=== PATIENT | female | born 2000 | race Caucasian/White ===

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

== ENCOUNTER → 2022-04-06 | Outpatient (CLI) | payer MEDICAID, SELFPAY | END | disposition home or self-care (01) | LOC: WOBLAB 15:14 | PROVIDERS: Visit Provider Obstetrics & Gynecology | DX: Z36.85 Encounter for antenatal screening for Streptococcus B (principal) | CPT/HCPCS: 36415; 86850; 87081 ==

== ENCOUNTER 2022-04-30 15:25 | Inpatient (IN) | payer MEDICAID, SELFPAY ==
[2022-04-30] VITALS (11 sets, daily range): BP systolic 123–131; BP diastolic 69–91; PULSE 94–125; TEMP 36.4–37.5; O2SAT 97–100; BMI 38.7
--- NOTE | 2022-04-30 08:05 | OB.TRI.NOTE ---
HPI - General General Date of Admission: 04/30/22 HPI Narrative DAIN CORTES, is a 21 F who presents with contractions PFSH PFSH Home Medications insulin detemir U-100 100 unit/mL subcutaneous solution (Levemir U-100 Insulin) 15 unit subcut BID Check with primary doctor 04/30/22 [History Last Taken Unknown] Allergy/AdvReac Type Severity Reaction Status Date / Time No Known Allergies Allergy Verified 04/30/22 01:40 Surgical History (Updated 08/31/21 @ 14:50 by Zach Nayak) Hx of tonsillectomy Social History Smoking Status: Never smoker NST FHR Rate Baby A Baseline: 145 Variability:: Moderate Accelerations:: 15 x 15 Decelerations:: None NST Reactive:: Yes Uterine Activity:: quiet Assessment & Plan (1) : PLAN: Patient arrived with contractions. Cervical exam unchanged. No signs of labor. Okay to discharge home and follow-up at scheduled appointments
[2022-04-30] MEDS: miSOPROStol 25 MCG TABLET VAGINAL (16:23)
[2022-04-30 16:39] LABS: Absolute Lymphocyte Count 1.79 X10^3/uL (0.83-4.51); Absolute Neutrophil Count 6.7 X10^3/uL (2.0-7.7); Basophil# 0.03 X10^3/uL; Basophil% 0.3 % (0-1); Eosinophil# 0.11 X10^3/uL; Eosinophils% 1.2 % (0-5); Hematocrit 32.7 % (37-47); Hemoglobin 10.8 g/dL (12.0-15.0); Lymphocyte # 1.79 X10^3/ul (0.83-4.51); Lymphocyte % 18.8 % (19-41); Mean Corpuscular Hgb 27.6 pg (27.0-32.0); Mean Corpuscular Volume 83.4 fL (81-99); Mean Platelet Vol. 11.6 fl (6.2-12.0); Monocyte# 0.64 X10^3/uL; Monocyte% 6.7 % (0-10); NRBC Flagged by Analyzer 0 % (0-5); Neutrophil # 6.74 X10^3/uL (2.7-7.7); Neutrophil % 70.8 % (47-70); Platelet Count 259 K/mm3 (150-450); RBC Distribution Width SD 39.1 fl (35.1-43.9); Red Blood Count 3.92 M/mm3 (4.2-5.4); White Blood Count 9.5 K/mm3 (4.4-11.0)
[2022-04-30 17:10] LABS: Bedside Glucose 79 mg/dL (74-106)
--- NOTE | 2022-04-30 17:44 | PCM.HP.BLA ---
History and Physical Date of Admission: 04/30/22 Chief complaint: Poorly controlled gestational diabetic induction of labor History present illness: 21-year-old G1, P0 at 38 weeks and 3 days with KEERTHI 05/11/2022 arrives for induction of labor with poorly controlled GDM A. Denies headache, visual changes, chest pain, shortness of breath, nausea vomit, right upper quadrant pain. He states good movement. is complicated by GDM A2 Obstetric history: G1: Current Past medical history: GDM A2 Medications: Levemir Allergies: No known drug allergies Past surgical history: Tonsils and adenoids Social history: Denies history of smoking, alcohol use, drug use Family history: Denies history DVT or PE Review of systems: Besides above pertinent positives a full review of systems was performed and found to be negative Physical exam: Vitals: Blood pressure 129/83 pulse 98 General: Normal-appearing no acute distress HEENT: Normocephalic atraumatic no cervical of adenopathy Cardiac/respiratory: No accessory muscles, nonlabored breathing Abdomen: Soft, nontender, gravid Extremities: No peripheral edema normal peripheral pulses Psych: Normal affect, demeanor nonpressured speech Labs: White blood cell count 9.5 hemoglobin 10.8 hematocrit 32.7% platelets 259. Blood type A- antibody negative Assessment plan: 21-year-old G1, P0 at 30 weeks and 3 days for induction of labor with poorly controlled GDM A Admit labor and delivery CEFM Cytotec induction GBS negative GDM A2: We will continue to monitor blood sugars Routine orders Anesthesia to see
[2022-04-30 17:45] LABS: Bedside Glucose 74 mg/dL (74-106)
--- NOTE | 2022-04-30 18:25 | NURSING ---
clinical study manager stated that an adult must be in room if father of who is 17 years old plans to stay the night. Discussed with family and the patients mother Nelda is planning to be present during the entire hospital stay. Social work will be consulted to see pt.
[2022-04-30] MEDS: LACTATED RINGERS 500 ML 999 ML IV (19:59)
[2022-04-30] MEDS: Lactated Ringers 1,000 ML 50 ML IV (19:59)
[2022-04-30 22:25] LABS: Bedside Glucose 76 mg/dL (74-106)
[2022-05-01] VITALS (40 sets, daily range): BP systolic 101–132; BP diastolic 54–80; PULSE 69–109; TEMP 36.1–36.6; O2SAT 84–100
[2022-05-01] MEDS: 0.9% Saline Lock 10 ML Syringe IV ×3 (00:05→19:14)
[2022-05-01] MEDS: LACTATED RINGERS 500 ML 999 ML IV ×3 (00:05→09:49)
[2022-05-01] MEDS: fentaNYL 100 MCG/2 ML Ampul IV ×2 (00:39→03:15)
[2022-05-01 02:11] LABS: Bedside Glucose 85 mg/dL (74-106)
[2022-05-01] MEDS: Ondansetron 4 MG/2 ML Vial IV ×2 (02:48→09:32)
[2022-05-01] MEDS: Oxytocin 15 Units/NS 250ml 15 UNITS/250 ML IV.SOLN 2 UNITS IV (05:46)
[2022-05-01 08:11] LABS: Bedside Glucose 87 mg/dL (74-106)
--- NOTE | 2022-05-01 08:24 | PCM.PN.OB ---
Subjective Subjective Patient feels much improved with epidural in place Objective Data Objective Data Vital Signs: Vital Signs Temp Pulse BP Pulse Ox 97.0 F L 96 120/74 100 05/01/22 08:01 05/01/22 08:01 05/01/22 08:01 05/01/22 08:01 Weight: 212 lb Body Mass Index (BMI) 38.7 Intake & Output: Intake and Output for Last 24 Hours 04/29/22 04/30/22 05/01/22 23:59 23:59 23:59 Intake Total 700.83 / 700.83 1008.60 / 1008.60 Output Total 150 / 150 200 / 200 Balance 550.83 / 550.83 808.60 / 808.60 Lab / Micro Data Result Diagrams: 04/30/22 16:00 Labs: Laboratory Results - last 24 hr 04/30/22 16:00: WBC 9.5, RBC 3.92 L, Hgb 10.8 L, Hct 32.7 L, MCV 83.4, MCH 27.6, MCHC 33.0, RDW Std Deviation 39.1, RDW Coeff of Jaima 13.0, Plt Count 259, MPV 11.6, Immature Gran % (Auto) 2.200 H, Neut % (Auto) 70.8 H, Lymph % (Auto) 18.8 L, [place] % (Auto) 6.7, Eos % (Auto) 1.2, Baso % (Auto) 0.3, Absolute Neuts (auto) 6.7, Absolute Lymphs (auto) 1.79, Nucleated RBC % 0 04/30/22 16:00: Blood Type A NEGATIVE, Antibody Screen TNP 04/30/22 16:00: Antibody Screen NEGATIVE 04/30/22 16:21: POC Glucose 79 04/30/22 17:23: POC Glucose 74 04/30/22 21:57: POC Glucose 76 05/01/22 01:46: POC Glucose 85 05/01/22 05:37: POC Glucose 87 Micro: Microbiology 04/30/22 16:10 Nasal Secretion SARS-CoV-2 Antigen (Rapid) - Final Physical Exam Const alert, oriented x3, no apparent distress, average body habitus, healthy appearing and well nourished HEENT normocephalic and moist oral mucous membranes Eyes PERRL Neck full ROM Resp normal respiratory effort, no retractions and no use of accessory muscles GI GI Narrative: Soft, nontender, gravid Extremity normal to inspection, full ROM and no clubbing, cyanosis or edema Neuro moves all extremities and no focal motor deficits Psych mental status grossly normal, affect normal, speech normal and activity/motor behavior normal Assessment & Plan (1) : PLAN: Patient seen and examined. Epidural test does place. Patient comfortable. We will continue Pitocin
[2022-05-01] MEDS: Acetaminophen 500 MG Tablet PO (09:32)
[2022-05-01 10:06] LABS: Bedside Glucose 90 mg/dL (74-106)
[2022-05-01] MEDS: fentaNYL-bupivacaine (epidural) 100 ML BAG EPIDURAL ×3 (10:50→20:51)
[2022-05-01] MEDS: Lactated Ringers 1,000 ML 200 ML IV ×2 (13:02→18:19)
[2022-05-01 13:51] LABS: Bedside Glucose 78 mg/dL (74-106)
[2022-05-01 17:55] LABS: Bedside Glucose 80 mg/dL (74-106)
--- NOTE | 2022-05-01 17:56 | PN.OBGYN_ITS ---
Subjective Subjective Patient comfortable with epidural Objective Data Objective Data Vital Signs: Vital Signs Temp Pulse BP Pulse Ox 97.8 F 109 H 105/64 99 05/01/22 17:31 05/01/22 17:31 05/01/22 17:31 05/01/22 17:31 Weight: 212 lb Body Mass Index (BMI) 38.7 Intake & Output: Intake and Output for Last 24 Hours 04/29/22 04/30/22 05/01/22 23:59 23:59 23:59 Intake Total 700.83 / 700.83 2571.40 / 2571.40 Output Total 150 / 150 200 / 200 Balance 550.83 / 550.83 2371.40 / 2371.40 Lab / Micro Data Result Diagrams: 04/30/22 16:00 Labs: Laboratory Results - last 24 hr 04/30/22 21:57: POC Glucose 76 05/01/22 01:46: POC Glucose 85 05/01/22 05:37: POC Glucose 87 05/01/22 09:37: POC Glucose 90 05/01/22 13:31: POC Glucose 78 05/01/22 17:35: POC Glucose 80 Micro: Microbiology 04/30/22 16:10 Nasal Secretion SARS-CoV-2 Antigen (Rapid) - Final Physical Exam Const alert, oriented x3, no apparent distress, average body habitus, healthy appe aring and well nourished HEENT normocephalic and moist oral mucous membranes Eyes PERRL Neck full ROM Resp normal respiratory effort, no retractions and no use of accessory muscles GI GI Narrative: Soft, nontender, gravid Narrative: Cervical exam: 370/-3. AROM clear fluid. IUPC placed with ease Extremity normal to inspection, full ROM and no clubbing, cyanosis or edema Neuro moves all extremities and no focal motor deficits Psych mental status grossly normal, affect normal, speech normal and activity/motor behavior normal Assessment & Plan (1) : PLAN: Patient seen and examined. AROM clear fluid. IUPC placed. Continue to titrate Pitocin
--- NOTE | 2022-05-01 21:56 | EX.PCM.OBRPT ---
Vaginal Delivery Findings Description of Procedure: Normal spontaneous vaginal delivery of a viable female infant, vertex EDITH. Head and shoulders delivered with ease. Cord cut and clamped. Baby handed off to patient. Placenta delivery via cord traction and fundal massage. Second-degree midline perineal laceration noted and repaired in typical fashion. EBL 250 cc Apgars 8/9
[2022-05-01 22:50] LABS: Bedside Glucose 94 mg/dL (74-106)
[2022-05-01 22:50] LABS: Bedside Glucose 78 mg/dL (74-106)
[2022-05-02] VITALS (11 sets, daily range): BP systolic 109–140; BP diastolic 58–87; PULSE 76–196; RESP 14–18; TEMP 36.2–36.6; O2SAT 98–99
[2022-05-02] MEDS: Acetaminophen 500 MG Tablet 1000 MG PO (03:15)
[2022-05-02] MEDS: Benzocaine/Lanolin/Aloe Vera 1 SPRAY EACH TOPICAL (03:16)
[2022-05-02 06:40] LABS: Bedside Glucose 94 mg/dL (74-106)
--- NOTE | 2022-05-02 08:54 | PCM.PN.OB ---
Subjective Subjective No overnight complaints Objective Data Objective Data Vital Signs: Vital Signs Temp Pulse Resp BP Pulse Ox O2 Del Method 97.2 F L 97 17 115/78 99 Room Air 05/02/22 04:11 05/02/22 07:43 05/02/22 04:11 05/02/22 07:43 05/02/22 07:43 05/02/22 04:11 Oxygen Delivery Method Room Air Weight: 212 lb Body Mass Index (BMI) 38.7 Intake & Output: Intake and Output for Last 24 Hours 04/30/22 05/01/22 05/02/22 23:59 23:59 23:59 Intake Total 700.83 / 700.83 5147.50 / 5147.50 Output Total 150 / 150 700 / 700 200 / 200 Balance 550.83 / 550.83 4447.50 / 4447.50 -200 / -200 Lab / Micro Data Result Diagrams: 04/30/22 16:00 Labs: Laboratory Results - last 24 hr 05/01/22 09:37: POC Glucose 90 05/01/22 13:31: POC Glucose 78 05/01/22 17:35: POC Glucose 80 05/01/22 21:11: POC Glucose 78 05/01/22 22:30: POC Glucose 94 05/02/22 00:10: Screen NEGATIVE, Baby's Blood Type B POSITIVE, Baby's ELPIDIO NEGATIVE 05/02/22 06:03: POC Glucose 94 Micro: Microbiology 04/30/22 16:10 Nasal Secretion SARS-CoV-2 Antigen (Rapid) - Final Physical Exam Const alert, oriented x3, no apparent distress, average body habitus, healthy appearing and well nourished HEENT normocephalic and moist oral mucous membranes Eyes PERRL Neck full ROM Resp normal respiratory effort, no retractions and no use of accessory muscles GI GI Narrative: Soft, nontender, uterus firm and below umbilicus Extremity normal to inspection, full ROM and no clubbing, cyanosis or edema Neuro moves all extremities and no focal motor deficits Psych mental status grossly normal, affect normal, speech normal and activity/motor behavior normal Assessment & Plan (1) Vaginal delivery: PLAN: day 1. Formula feeding. Pain well controlled. GDM A2, will follow-up . likely home tomorrow
[2022-05-02] MEDS: Ibuprofen 100 MG/5 ML UDC 600 MG PO ×2 (11:23→23:30)
--- NOTE | 2022-05-02 13:28 | CM.ED ---
HAO Note Mom: Roopa BUI met with TAL. MOB gave this jingle writer permission to speak to her in the presence of her guests, cousin and mother. PNC: Dr. Yousif Control: Pill Baby: Crystal Bloom : 05/01/22 Weight: 7# 5 ounces Hand Folder: Pina in [place] Bottle feeding MOB's other children: None Housing: TAL reports that she resides in an apartment with nb, MOB's mom, MOB's brother and MOB's father. Transportation: TAL said that she doesn't drive but her mom, cousin and father will provide her transportation. Supplies: TAL reports she has clothes, carseats, bassinet, crib and diapers. Supports: TAL reports that her supports are her mom, Nelda, cousin Denae and her father. Education Level: TAL graduated from high school. No learning issues or delays. No college or technical training. Employment: TAL reports that she is not currently employed. 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 Agency Involvement: TAL reports that she receives food stamps and plans to enroll the nb on her insurance. TAL has WIC. TAL was educated on [facility] but declined a referral. TAL said that she has scheduled a counseling appointment with Dia this week but cancelled it and has to reschedule. MOB denied any legal or CSB issues. FOB: Juice Damien TAL reports that she does not know if the FOB is going to be involved with the nb. TAL said that she and the FOB are not together. The FOB is not employed and the FOB has no other children. FOB's MH/DV and AOD : TAL said that FOB has been diagnosed with PTSD and bipolar but I could be wrong. TAL reports a history of anxiety and depression. TAL reports no past or current SI/HI. MOB said that she was previously on zoloft, which was beneficial but discontinued and plans to resume it now that she is not . MOB said that she will call Dia to reschedule her counseling appointment. MD Yousif prescribes her zoloft. MOB denied alcohol, drugs or smoking. Patient was educated on PPD, Shaken Baby and Safe Sleep MOB voiced no questions or concerns. No concerns by medical staff services coordinator voiced. SW remains available if needs arise. Plan: Home at discharge Jo-Ann Jena [facility]
[2022-05-02] MEDS: Acetaminophen 650 MG/20 ML UDC 1000 MG PO (19:44)
[2022-05-03] MEDS: Acetaminophen 650 MG/20 ML UDC 1000 MG PO (02:08)
[2022-05-03 02:11] VITALS: BP 131/75; PULSE 90
[2022-05-03 02:15] VITALS: BP 116/67; PULSE 90; RESP 15; TEMP 36.2
[2022-05-03 02:16] VITALS: BP 116/67; PULSE 85
[2022-05-03] MEDS: Ibuprofen 100 MG/5 ML UDC 600 MG PO (05:57)
[2022-05-03 08:05] VITALS: BP 114/62; PULSE 67
[2022-05-03 08:12] VITALS: BP 114/62; PULSE 67; RESP 16; TEMP 36.1
--- NOTE | 2022-05-03 08:44 | DS.PCM_ITS ---
Discharge Summary Date of Admission: 04/30/22 Date of Discharge: 05/03/22 Summary: Patient arrived on 04/30/2022 for induction of labor at term with poorly controlled gestational diabetes. Subsequently delivered on 05/01/2022 vaginally. Routine recovery. Discharge home on 05/03/2022 Meaningful Use Info Meaningful Use Diagnoses (Choose all that apply): None applicable Discharge Plan Admission Admit Date/Time: 04/30/22 15:25 Primary Reason for Your Visit: Induction of labor GDMA Attending Provider: Rajesh Yousif Primary Care Provider: Moriah Cook Primary Instructions Patient Instructions: Kick Counts, ED False Labor, OB Triage: Return to Hospital or Notify Physician if you Experience: Additional Instructions / Restrictions: Regular diet. Weightbearing as tolerated. Okay to shower. No intercourse for 4 to 6 weeks. Call if fevers, chills, chest pain, shortness of breath. Follow- up 4 to 6 weeks Discharge Orders/Prescriptions Prescriptions: Discontinued Levemir U-100 Insulin 100 unit/mL Solution 15 unit SUBCUT BID Referrals / Follow Up: Care PhysicianMoriah Primary [Primary Care Provider] - Disposition Disposition (needs filled in before D/C Order can be placed): Home, Self Care
--- NOTE | 2022-05-03 08:45 | PCM.PN.OB ---
Subjective Subjective No overnight complaints Objective Data Objective Data Vital Signs: Vital Signs Temp Pulse Resp BP Pulse Ox O2 Del Method 97.0 F L 67 16 114/62 98 Room Air 05/03/22 08:12 05/03/22 08:12 05/03/22 08:12 05/03/22 08:12 05/02/22 16:45 05/02/22 16:45 Oxygen Delivery Method Room Air Weight: 212 lb Body Mass Index (BMI) 38.7 Intake & Output: Intake and Output for Last 24 Hours 05/01/22 05/02/22 05/03/22 23:59 23:59 23:59 Intake Total 5147.50 / 5147.50 Output Total 700 / 700 400 / 400 Balance 4447.50 / 4447.50 -400 / -400 Lab / Micro Data Result Diagrams: 04/30/22 16:00 Micro: Microbiology 04/30/22 16:10 Nasal Secretion SARS-CoV-2 Antigen (Rapid) - Final Physical Exam Const alert, oriented x3, no apparent distress, average body habitus, healthy appearing and well nourished HEENT normocephalic and moist oral mucous membranes Eyes PERRL Neck full ROM Resp normal respiratory effort, no retractions and no use of accessory muscles Extremity normal to inspection, full ROM and no clubbing, cyanosis or edema Neuro moves all extremities and no focal motor deficits Psych mental status grossly normal, affect normal, speech normal and activity/motor behavior normal Assessment & Plan (1) Vaginal delivery: PLAN: day 2. Formula feeding. Pain well controlled. GDM A2 will follow . Okay to discharge home today
== END 2022-05-03 10:55 | disposition home or self-care (01) | DRG 560 ==
LOC: WPOUT 15:29 → WP 15:29
PROVIDERS: Admitting Provider Obstetrics & Gynecology; Visit Provider Obstetrics & Gynecology
DX: O24.424 Gestational diabetes mellitus in childbirth, insulin controlled (principal); Z37.0 Single live birth; O70.1 Second degree perineal laceration during delivery; Z3A.38 38 weeks gestation of pregnancy; Z20.822 Contact with and (suspected) exposure to COVID-19
CPT/HCPCS: 59025; 59050; 82962; 85025; 85461; 86850; 86900; 86901; 87811; 90384; 99218; J7120; A4216; G0378; J2405; J2790

== ENCOUNTER 2022-12-21 17:21 | Emergency (ER) | payer MEDICAID, SELFPAY ==
[2022-12-21 17:22] VITALS: BP 112/66; PULSE 90; RESP 18; TEMP 36.1; O2SAT 100; BMI 31.3
--- NOTE | 2022-12-21 17:48 | EDS_ITS ---
HPI History of Present Illness Chief Complaint: Flank Pain Narrative Narrative: Patient presents with left-sided flank pain. It started this morning. She is not coughing or short of breath. Does not hurt to breathe. She had dysuria 2 days ago about twice but it went away after drinking water. Last menstrual cycle was just the end of November and normal timing. She is not having discharge or bleeding now. She states if she moves or twist that all it hurts. If she stays still its not that bad. She has not having fevers. She states there is no fall or impact or trauma. But about 2 days prior to this she did do a lot of lifting at work. 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 This was more and much heavier work than normal. Her mother thinks she hurt herself at work. [facility] Medical History Anxiety Depression Gestational diabetes Home Medications naproxen 500 mg tablet 500 mg PO BID #14 tabs 12/21/22 [Rx Last Taken Unknown] Allergy/AdvReac Type Severity Reaction Status Date / Time peanut Allergy Anaphylaxis Verified 12/21/22 17:22 Surgical History Hx of tonsillectomy Social History Smoking Status: Never smoker ROS ROS ED ROS Narrative A complete review of systems was performed and is negative except as documented in the history of present illness. Some specific details below. Constitutional: No recent fevers or chills. Malaise. She does not feel systemically ill at all. ENT: No difficulty swallowing. No swelling. No pain. No congestion coughing or sneezing. CV: No chest pain or palpitations. No pain when she takes a deep breath no history of DVT or PE. Respiratory: No dyspnea. No hemoptysis. No difficulty taking breaths. GI: No nausea vomiting change in diet appetite or bowel habits. : No frequency dysuria or hematuria. About 2 days ago she did have dysuria twice but drank water and it was gone. She has not had it since or before. No change in frequency. Musculoskeletal: See history of present illness Skin: No rash. Nondiaphoretic. Neuro: No weakness or numbness. Endocrine: No polyuria or polydipsia. EXAM Physical Exam Narrative Exam Narrative: CONSTITUTIONAL: Patient is nontoxic in appearance. The patient looks comfortable. She is laying still on bed. HEENT: No notable trauma. Mucous membranes moist. No sinus tenderness. No indication of pain with swallowing. EYES: No conjunctival injection. No icterus. CARDIOVASCULAR: Regular rate. Regular rhythm. No notable murmur. No JVD. RESPIRATORY: No respiratory distress. Breathing is unlabored. No wheezes. No rhonchi. No rales. No pain with a deep breath. GASTROINTESTINAL: Not distended. Bowel sounds are normal. No tenderness. No guarding. No rebound. No palpable mass. No bruit. GENITOURINARY: No tenderness over the bladder. She does have some tenderness at around the CVA area but it is very localized and about 2 inches. If she moves or twist it hurts there. Mild palpation hurts. But there is no swelling redness or skin changes. It is extremely motion related. MUSCULOSKELETAL: Atraumatic. No peripheral edema. No cord. No tenderness along the deep venous system. No asymmetry. Tenderness along the left paraspinal/CVA area as above. When she sits up or twist her pain is reproduced and exacerbated. NEUROLOGICAL: Patient is alert and appropriate. No focal deficit noted. SKIN: No noted rashes. No diaphoresis. PSYCHIATRIC: Patient is calm. Mood is appropriate. Const Vital Signs: 12/21/22 17:22 12/21/22 17:31 Temperature 97 F L Temperature Source Temporal Pulse Rate 90 Respiratory Rate 18 Respiratory Effort Normal Respiratory Pattern Normal Blood Pressure 112/66 Blood Pressure Mean 81 Pulse Ox 100 Oxygen Delivery Method Room Air [facility] Narrative Medical decision making narrative: Patient's urine shows a few white cells but only a small amount of leukocyte Estrace and negative nitrites. is negative. There are no red blood cells seen. No occult blood. I talked with the patient about the findings. Although she has some white cells she has absolutely no dysuria frequency or urgency. She had 1 or 2 episodes of this. No fevers or chills. Her left-sided pain is exceedingly reproducible on exam. Just twisting motion or light palpation reproduces it. It hurts for her to bend or twist. I think this is musculoskeletal pain. I do not think there is any indication that this is pulmonary or pulmonary embolus. I do not think she needs CT scan of the abdomen at this time. I do not think blood work will help. We will get her something for pain. If she develops fevers chills dysuria vomiting trouble breathing coughing or any other concerns she should return. I explained that we will send the urine off for a culture. It is possible we will call back if this is positive. Lab Data Attestation: I reviewed the patient's lab results. Labs: Laboratory Results - last 24 hr 12/21/22 17:45 Urine Color Yellow Urine Clarity Clear Urine pH 5.0 Ur Specific [place] 1.020 Urine Protein Negative Urine Glucose (UA) Normal Urine Ketones Negative Urine Occult Blood Negative Urine Nitrite Negative Urine Bilirubin Negative Urine Urobilinogen Normal Ur Leukocyte Esterase 100 H Urine RBC 0 SEEN Urine WBC 10-25 SEEN Ur Squamous Epith Cells 0-5 SEEN Urine Bacteria 1+ Urine Mucus 0 SEEN Urine Test Negative Discharge Plan Triage Chief Complaint: Flank Pain ED Provider: Josr Bray Dx/Rx/DC Orders Clinical Impression: Back strain Instructions: Treating?Strains and Sprains Prescriptions: New naproxen 500 mg tablet 500 mg PO BID Qty: 14 0RF Primary Care Provider: Care Physician,No Primary Referrals: Shantel Ma MD [Med Staff - Chief Librarian Circulation Department] - 3-5 Days if not improving Care Physician,No Primary [Primary Care Provider] - Disposition Disposition: Home, Self Care
[2022-12-21 17:53] LABS: Mucous, Urine 0 SEEN /hpf (<or=2+); Red Blood Cells-Urine 0 SEEN /hpf (0-5)
[2022-12-21 17:55] LABS: Color, Urine Yellow (Yellow); Glucose, Dipstick Normal (Normal); Ketone-Dipstick Negative (Negative); Leukocyte Esterase-Dipstick 100 /ul (Negative); Nitrite-Dipstick Negative (Negative); Occult Blood-Urine Negative /ul (Negative); Protein-Dipstick Negative (Negative); Urine Bilirubin Dipstick Negative (Negative); Urine Clarity Clear (Clear); Urine Urobilinogen Normal (Normal)
[2022-12-21 18:06] LABS: Bacteria 1+ /hpf (None Seen); Squamous Epithelial Cells - UA 0-5 SEEN /hpf (5-10); White Blood Cells 10-25 SEEN /hpf (0-5)
[2022-12-21 18:19] LABS: Internal QC Validated? YES +Cl - CLEAR BKGD; Pregnancy, Urine Negative Negative
[2022-12-21] MEDS: Ketorolac 60 MG/2 ML Vial IM (18:55)
== END 2022-12-21 19:24 | disposition home or self-care (01) ==
LOC: ED 18:51
PROVIDERS: Emergency Provider Emergency Medicine; Visit Provider Emergency Medicine
DX: S39.012A Strain of muscle, fascia and tendon of lower back, initial encounter (principal); X50.0XXA Overexertion from strenuous movement or load, initial encounter
CPT/HCPCS: 81001; 81025; 96372; 99282

== ENCOUNTER → 2023-03-17 | Outpatient (CLI) | payer MEDICAID, SELFPAY ==
[2023-03-17 16:25] LABS: Hematocrit 37.3 % (37-47); Hemoglobin 11.7 g/dL (12.0-15.0); Mean Corp Hgb Conc 31.4 g/dL (32-36); Mean Corpuscular Hgb 26.5 pg (27.0-32.0); Mean Corpuscular Volume 84.4 fL (81-99); Mean Platelet Vol. 12.2 fl (6.2-12.0); Platelet Count 278 K/mm3 (150-450); RBC Distribution Width CV 14.2 % (11.6-14.6); RBC Distribution Width SD 43.8 fl (35.1-43.9); Red Blood Count 4.42 M/mm3 (4.2-5.4); White Blood Count 5.2 K/mm3 (4.4-11.0)
[2023-03-17 17:19] LABS: hCG Titer Quant., Serum 2009 mIU/mL (1-3)
== END | disposition home or self-care (01) ==
PROVIDERS: Visit Provider Obstetrics & Gynecology
DX: O03.9 Complete or unspecified spontaneous abortion without complication (principal)
CPT/HCPCS: 36415; 84702; 85027

== ENCOUNTER → 2023-04-05 | Outpatient (CLI) | payer MEDICAID, SELFPAY ==
[2023-04-05 10:47] LABS: hCG Titer Quant., Serum 201 mIU/mL (1-3)
== END | disposition home or self-care (01) ==
PROVIDERS: Referring Provider Obstetrics & Gynecology; Visit Provider Obstetrics & Gynecology
DX: O03.9 Complete or unspecified spontaneous abortion without complication (principal); Z3A.00 Weeks of gestation of pregnancy not specified
CPT/HCPCS: 36415; 84702

== ENCOUNTER 2024-04-13 10:22 | Day surgery (SDC) | payer MEDICAID, SELFPAY ==
[2024-04-13] VITALS (8 sets, daily range): BP systolic 84–100; BP diastolic 50–80; PULSE 55–90; RESP 16–20; TEMP 35.8–36.4; O2SAT 100; BMI 34.7
--- NOTE | 2024-04-13 | FALS_PTH ---
PATIENT: DAIN CORTES LOC: [facility] [place][id number] AGE/SX: 23/F ROOM: RE04/13/[address]: Dr. Nini Mcfarland DO : 2000 BED: DIS: 04/13/2024 SPEC #: [id number] RECD: 04/13/24 13:40 STATUS: EAMON REQ #: [id number] KODAK: 04/13/24 00:[address]: Nini Mfcarland DEPT: SURGICAL PATHOLOGY RECD BY: Juice Vyas ENTERED: 04/13/24 13:41 SP TYPE: FALL TUBES OTHR DR: No Primary Care Phys Tissues: Fallopian tube Procedures: Surgery Specimen Level II HEADER OPERATION: Laparosocpic salpingectomy PRE-OP DIAGNOSIS: Sterilization request TISSUE SUBMITTED: Bilateral fallopian tubes MICROSCOPIC DIAGNOSIS Bilateral fallopian tubes, salpingectomy: Bilateral fallopian tubes, no pathologic diagnosis. VERNON: 04/14/2024 MICROSCOPIC DESCRIPTION Slides are reviewed. GROSS DESCRIPTION Received in fixative is one container labeled with the patient's name and designated bilateral fallopian tubes. The specimen consists of bilateral fallopian tubes including fimbrial ends measuring 7.5 cm in length and 0.7 cm in diameter and 8.0cm in length and 0.5cm in diameter. The fallopian tubes are not identified as right or left. Sections reveal unremarkable cut surfaces. Farm Equipment Mechanic Apprentice sections are submitted in two cassettes with each cassette containing one fallopian tube. / VERNON:mr 04/13/2024 TC:4 CPT: 23896 x2
--- NOTE | 2024-04-13 10:31 | PCM.PRE.AN2 ---
ASA Classification* ASA Classification ASA Classification: 3 Assessment & Plan Anesthesia* Anesthesia Assessment Anesthesia Assessment: Discussed sedation and/or anesthesia options, risks, benefits, and alternatives with patient/parents/legal guardian/POA. Questions invited. The patient/parents/legal guardian/POA seems to understand and agrees to proceed with anesthesia plan. Reviewed the physical assessment, medical history, allergy history and patient home medications list prior to surgery/procedure/anesthetic and documented any changes. Performed airway and anesthesia risk assessments. Anesthesia Type Anesthesia Type: General (see written pre anesthesia record for full assessment) Anesthesia Focused Assessment* Airway Assessment Mouth opens: >3 cm Mallampati Score: II Focused Labs Anesthesia Preop lab: CBC WBC 5.2 K/mm3 (4.4-11.0) 03/17/23 15:40 RBC 4.42 M/mm3 (4.2-5.4) 03/17/23 15:40 Hgb 11.7 g/dL (12.0-15.0) L 03/17/23 15:40 Hct 37.3 % (37-47) 03/17/23 15:40 Plt Count 278 K/mm3 (150-450) 03/17/23 15:40 CHEMISTRY POC Glucose 94 mg/dL (74-106) 05/02/22 06:03 COAG HCG, Quant 201 mIU/mL (1-3) H 04/05/23 09:59 Urine Test Negative Negative 12/21/22 17:45 Pre-Assessment Diagnosis/Proposed Procedure Planned Operative Procedure(s): LAP SALPINGECTOMY BILAT Anesthesia History 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 When Was Last Pacemaker Check QUESTION #4 FULL TEXT: You/Your Family Experience fever (hyperthermia) with Anesthesia Last Oral Intake Last Oral intake: Last Oral Intake NPO since Meds taken in AM with sips of water? Meds patient instructed to take am of surgery PONV PONV - radio division captain: PONV - radio division captain Female Yes 04/04/24 14:41 HX of Motion Sickness No 04/04/24 14:41 HX of N/V After Surgery No 04/04/24 14:41 Non-Smoker Yes 04/04/24 14:41 Duration of Surgery greater No 04/04/24 14:41 than 60 minutes Number of Risk Factors 2 04/04/24 14:41 PONV Score Moderate Risk 04/04/24 14:41 Height & Weight Height & Weight: Anesthesia: Height & Weight Height 5 ft 2 in 12/21/22 17:22 Respiratory Assessment Respiratory Assessment - radio division captain: Respiratory Tract Infection Hx - radio division captain Hx Respiratory Tract Infection Yes: COVID 1 WEEK AGO/NO 04/04/24 14:41 SYMPTOMS NOW STOP Sleep Apnea STOP Sleep Apnea - radio division captain: STOP Sleep Apnea - radio division captain Hx Hypertension No 04/04/24 14:41 Hx Sleep Apnea No 04/04/24 14:41 CPAP BIPAP Do you snore loudly (louder No 04/04/24 14:41 than talking or can be heard Do you often feel tired/ No 04/04/24 14:41 fatigued/ sleepy during daytime? Has anyone observed you stop No 04/04/24 14:41 breathing during sleep? STOP Results Negative 04/04/24 14:41 QUESTION #5 FULL TEXT : Do you snore loudly (louder than talking or can be heard through closed doors)? 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 Specify any problems Hx of Preganancy in last 3 No 04/04/24 14:41 Months Nurse Filling Out Transfusion DSCHRIBER 04/04/24 14:41 & Questions: Date: 04/04/24 04/04/24 14:41 Time: 14:42 04/04/24 14:41 Patient unable to answer at this time (ie. confused, unrespo /Reproduction History /Reproductive History - radio division captain: /Reproductive Hx- radio division captain Hx Now No 04/04/24 14:41 Gestational Age (in weeks): EDC: Hx Hx Para Hx Section SAB No 04/04/24 14:41 Active Medications Active Medications: Current Medications Generic Name Dose Route Start Last Admin Trade Name Freq PRN Reason Stop Dose Admin Lactated Ringer's 1,000 mls @ 15 mls/hr 04/13/24 10:30 IV .Q48H DAVY PFSH Medical History Wears glasses Depression Anxiety Migraine headache Non-smoker Gestational diabetes Allergy/AdvReac Type Severity Reaction Status Date / Time peanut Allergy Anaphylaxis Verified 04/04/24 14:39 Surgical History Hx of tonsillectomy Social History Smoking Status: Never smoker Review of Systems (Anesthesia) ROS Narrative System reviewed and no additional complaints, except as documented.
[2024-04-13 11:01] LABS: Internal QC Validated? YES +Cl - CLEAR BKGD; Pregnancy, Urine Negative Negative; Record Kit Lot#,Urine Preg HCG0000772476
[2024-04-13] MEDS: Lactated Ringers 1,000 ML 15 ML IV ×2 (11:07→13:00)
[2024-04-13 11:20] LABS: Hematocrit 36.3 % (37-47); Hemoglobin 11.6 g/dL (12.0-15.0); Mean Corpuscular Hgb 25.2 pg (27.0-32.0); Mean Corpuscular Volume 78.9 fL (81-99); Mean Platelet Vol. 10.3 fl (6.2-12.0); Platelet Count 294 K/mm3 (150-450); RBC Distribution Width CV 17.4 % (11.6-14.6); White Blood Count 4.4 K/mm3 (4.4-11.0)
[2024-04-13] MEDS: Bupivacaine Mpf 0.5% 30 ML VIAL (11:24)
--- NOTE | 2024-04-13 12:24 | OP.PCM_ITS ---
Problems Associated Problem List Diagnoses (1) Encounter for sterilization: Report of Operation Date of Procedure: 04/13/24 Pre-Operative Diagnosis: Request for sterilization Post-Operative Diagnosis: As above Surgery/Procedure Performed:: Laparoscopic bilateral salpingectomy Description of Surgical Findings:: Normal appearing uterus, bilateral adnexa, and pelvic CDS Surgeon: Nini Mcfarland developmental specialist: Romeo RUSSO Type of Anesthesia: General Special Medications: None Specimen's removed: Bilateral fallopian tubes Drains: None Estimated Blood Loss (mL): < 20 Fluids Replaced: 800 cc Description of Procedure: The patient was taken to the operating room where general anesthesia was induced and found to be adequate. She was prepped and draped in the dorsal lithotomy position using yellowfin stirrups. A weighted speculum was placed in the vagina to expose the cervix. The anterior lip of the cervix was grasped with a single- tooth tenaculum. A uterine manipulator was placed. Gloves were changed and attention was turned to the abdominal portion of the procedure. Local was infiltrated at all port sites. An infraumbilical incision was made to accommodate a 5 mm port. The port was placed under direct visualization using the laparoscope. Once confirmed intraperitoneal, CO2 insufflation was initiated. No injuries were noted upon entry. The patient was placed in Trendelenburg position. A right lateral 5 mm port was placed. A left lateral 5 mm port was placed. The uterus was upheld from below. The pelvis was normal- appearing. The left fallopian tube was followed out to the fimbriated end, and elevated out of the pelvis. The LigaSure device was used to serially clamp, cauterize, and transect the mesosalpinx hugging adjacent to the fallopian tube. Once at the level of the cornua the fallopian tube was transected and removed. The right fallopian tube was followed out to the fimbriated end and elevated out of the pelvis. The LigaSure device was used to serially clamp, cauterize, and transect along the mesosalpinx hugging adjacent to the fallopian tube until reaching level of the cornua. Once at the level of the cornua the fallopian tube was transected and removed. Bilateral fallopian tubes were sent to pathology for review. Hemostasis was noted. All ports were removed and the abdomen was exsufflated. Port sites were closed with Monocryl and Dermabond glue. The uterine manipulator was removed vaginally. Bleeding was hemostatic vaginally. A vaginal sweep was performed. Instrument, sponge, sharp counts were correct. The patient was taken to the recovery room in stable condition. Romeo RUSSO was present for the entire case and assisted with draping the patient, removing the fallopian tubes, and closure. Grafts/Implants Used: None Procedure Start Time: 12:00 Procedure Stop Time: 12:28 Complications None Admit VTE Documentation VTE Present on Admission: No VTE Mechan Device Prophylaxis: SCD's
--- NOTE | 2024-04-13 12:37 | DCINST_ITS ---
Discharge Instructions Diet Discharge Diet: No restrictions Activity Discharge Activity: May Drive (once you are more than 24 hours out from surgery, and you feel strong enough to slam on a brake or turn a steering wheel sharply) and May Shower (once you are more than 24 hours out from surgery) May resume sexual activity in: 1-2 weeks Ice area for (Minutes): 15 Weight Bearing Status: Weight bearing as tolerated Lifting Restrictions: nothing heavier than 15 pounds for 1 week Dressing / Incision Call your doctor if your incision/area has: Continuous Slow Oozing, Sudden Increased Bleeding, Increased Pain/ Swelling, Increased Redness, Foul Smelling Discharge and Swelling at the incision site Call your doctor if you observe: Fever of 101 or Higher, Coldness, Increased Pain, Numbness or Tingling, Change in Color, Inability to urinate, Inability to have a bowel movement, Using more than 1 pad per hour, Shortness of breath, Dizziness, Fainting spells, Swelling in the ankles, Chest pain, Prolonged hiccupping, Increased palpitations (irregular heartbeat), Calf discomfort and Uncontrolled pain Suture Line Care: Avoid Pulling/Pushing and Avoid Pinching/Bending Remove Dressing in: leave until fall off (the glue will peel up and it is ok to peel it off or cut it) Cleanse incision/area with: Soap & Water Follow Up Care Please Follow Up With: Nini Mcfarland DO When: 1-2 post op appointment Test Results: Test results from this visit will be discussed in further detail at your follow- up appointment, if applicable. Discharge Plan Admission Primary Reason for Your Visit: Surgery Attending Provider: Nini Mcfarland Primary Care Provider: Livan PhysicianMoriah Primary Instructions Patient Instructions: Pelvic Laparoscopy Print Language: Kiswahili Discharge Orders/Prescriptions Referrals / Follow Up: Care PhysicianMoriah Primary [Primary Care Provider] - Disposition Disposition (needs filled in before D/C Order can be placed): Home, Self Care
--- NOTE | 2024-04-13 13:35 | PCM.POST.ANE ---
Anesthesia: Postop Eval I Current Vital Signs Temperature: 97.4 F Pulse Rate: 56 Blood Pressure: 94/53 Respiratory Rate: 16 Pulse Ox: 98 Assessment Airway patent: Yes Spontaneous unlabored respirations: Yes nausea: No Vomiting: No Anesthesia Complication: No Fluid Hydration Crystalloid volume administer (ml): 400 Total IV fluid infused: 400 Progress Note Anesthesia document: Postop Eval 1 completed: Yes
--- NOTE | 2024-04-13 14:36 | PCM.POSTANE2 ---
Anesthesia Postop Eval I Sum Anesthesia Postop Eval I Summary Anesthesia Postop Eval I Summary: Anesthesia Postop Eval I: Assessment Summary Airway patent Spontaneous unlabored respirations Mental status nausea Vomiting Anesthesia Postop Eval I: Fluid Summary Crystalloid volume administer (ml) Colloids volume administered ( ml) Blood Product volume administered (ml) Total IV fluid infused Anesthesia Postop Eval I: Summary Notes Anesthesia Complication Anesthesia Complication Comment: Post-operative progress note Anesthesia: Postop Eval II Evaluation Mental status: Awake and Calm Pain Level: 1 nausea: No Vomiting: No Complications Anesthesia Complication: No
[2024-04-14 06:46] VITALS: BP 94/53; PULSE 56; RESP 16; TEMP 36.3; O2SAT 98
== END 2024-04-13 14:12 | disposition home or self-care (01) ==
LOC: SDC 10:23 → AC 10:24
PROVIDERS: Anesthesiology; Referring Provider Obstetrics & Gynecology; Visit Provider Obstetrics & Gynecology
PROC: (CPT 58661; principal; 2024-04-13 11:30)
DX: Z30.2 Encounter for sterilization (principal); Z86.16 Personal history of COVID-19; Z87.891 Personal history of nicotine dependence
CPT/HCPCS: 58661; 81025; 85027; 86850; 86900; 86901; 88302; J7120; J2405